=== PATIENT | male | born 1980 | race Two or more races ===

== ENCOUNTER 2021-03-28 15:39 | Emergency (ER) | payer OTHER, SELFPAY ==
[~2021-03-28] VITALS: Ht 180.3 cm; Wt 100.3 kg
[2021-03-28 16:36] LABS: BASOPHILS % (AUTO) 1 % (0-1); EOSINOPHILS % (AUTO) 0 % (1-7); LYMPHOCYTES % (AUTO) 21 % (22-44); MEAN CORPUSCULAR HEMOGLOBIN 30.4 pg (27.5-34.5); MEAN CORPUSCULAR HGB CONC 34.7 g/dL (33.2-36.2); MEAN PLATELET VOLUME 8.5 fL (7.4-10.4); MONOCYTES % (AUTO) 6 % (2-9); NEUTROPHILS % (AUTO) 72 % (42-75); PLATELET COUNT 252 x10^3/uL (130-400); RED BLOOD COUNT 5.65 x10^6/uL (4.38-5.82); RED CELL DISTRIBUTION WIDTH 13.3 % (9.4-14.8)
[2021-03-28 16:43] LABS: ANION GAP 7 mmol/L (5-15); CALCIUM 9.1 mg/dL (8.5-10.1); CHLORIDE 105 mmol/L (98-107)
[2021-03-28 16:46] LABS: ALANINE AMINOTRANSFERASE 56 U/L (12-78); ALKALINE PHOSPHATASE 87 U/L (45-117); BILIRUBIN,TOTAL 0.7 mg/dL (0.2-1.0); CREATININE 1.13 mg/dL (0.7-1.3); TOTAL PROTEIN 8.1 g/dL (6.4-8.2)
--- NOTE | 2021-03-28 17:51 | NUR ---
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
[2021-03-28 18:02] VITALS: BP 143/80
--- NOTE | 2021-03-28 18:02 | NUR ---
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 PT PULLED OVER AND VOMITED. PT HAS SINCE BEEN RESTING AND REPORTS FEELING BETTER BUT STATES HIS BODY DOESN'T FEEL WELL. SO AT BEDSIDE
--- NOTE | 2021-03-28 18:38 | NUR ---
covid swab collected and walked to lab.
== END 2021-03-28 18:51 | disposition home or self-care (01) ==
LOC: ED 15:50
DX: R42 Dizziness and giddiness (principal); R11.2 Nausea with vomiting, unspecified; Z20.822 Contact with and (suspected) exposure to COVID-19
CPT/HCPCS: 36415; 71046; 80053; 85025; 93005; 99285; U0003; U0005